=== PATIENT | male | born 1955 | race Caucasian/White ===

== ENCOUNTER 2016-09-26 07:16 | Outpatient (CLI) | payer OTHER | END 2016-09-26 07:17 | disposition home or self-care (01) | DX: N28.89 Other specified disorders of kidney and ureter (principal); R10.9 Unspecified abdominal pain ==

== ENCOUNTER 2016-11-20 07:11 | Outpatient (CLI) | payer OTHER ==
[2016-11-20] MEDS ORDERED: IOPAMIDOL-300 100 ML VIAL IVP ONE (09:03)
== END 2016-11-20 07:12 | disposition home or self-care (01) ==
DX: N28.1 Cyst of kidney, acquired (principal); N28.89 Other specified disorders of kidney and ureter; R10.2 Pelvic and perineal pain; R10.9 Unspecified abdominal pain; R31.9 Hematuria, unspecified
CPT/HCPCS: 36415; 74178; 80048; Q9967

== ENCOUNTER 2017-03-20 14:55 | Outpatient (CLI) | payer OTHER | END 2017-03-20 14:56 | disposition home or self-care (01) | DX: G62.9 Polyneuropathy, unspecified (principal) ==

== ENCOUNTER 2018-03-28 09:58 | Day surgery (SDC) | payer BC ==
[~2018-03-28 09:58] MED LIST: BRIMONIDINE 0.2% OPHTH DROPS 5 ML ONE; BSS/LIDOCAINE/EPINEPHRINE 1 ML SYRINGE ONE; EPINEPHrine 1 MG/ML AMP ONE; TIMOLOL 0.5% OPHTH DROPS ONE; TRIAMCIN/MOXIFLOX OPHTHALMIC 0.6 ML VIAL IO ONE; VANCOMYCIN OPHTHALMI 8MG/0.8ML 8 MG/0.8 ML SYRINGE IO ONE
[2018-03-28] MEDS ORDERED: CYCLOPENTOLATE 1% OPHTH DROPS 2 ML ONE (10:02)
[2018-03-28] MEDS ORDERED: PHENYLEPHRINE 2.5% OPHTH 2 ML DROPS ONE (10:02)
[2018-03-28] MEDS ORDERED: PROPARACAINE 0.5% OPHTH DROPS 15 ML ONE (10:02)
[2018-03-28] MEDS ORDERED: KETOROLAC 0.45% OPHTH DROPS ONE (10:02)
[2018-03-28] MEDS ORDERED: CYCLOPENTOLATE 1% OPHTH DROPS 2 ML LEFTEYE ONE (10:12)
[2018-03-28] MEDS ORDERED: PHENYLEPHRINE 2.5% OPHTH 2 ML DROPS LEFTEYE ONE (10:12)
[2018-03-28] MEDS ORDERED: KETOROLAC 0.45% OPHTH DROPS LEFTEYE ONE (10:12)
[2018-03-28] MEDS ORDERED: PROPARACAINE 0.5% OPHTH DROPS 15 ML LEFTEYE ONE ×2 (10:12→11:05)
[2018-03-28] MEDS ORDERED: LACTATED RINGERS 500 ML IV ONE (10:15)
[2018-03-28] MEDS ORDERED: SCOPOLAMINE PATCH TOP ONE (10:32)
[2018-03-28] MEDS ORDERED: EPINEPHrine 1 MG/ML AMP IR ONE (11:04)
[2018-03-28] MEDS ORDERED: BRIMONIDINE 0.2% OPHTH DROPS 5 ML OPTH ONE (11:04)
[2018-03-28] MEDS ORDERED: CHONDR SULF/HYALURONATE SYRINGE IO ONE (11:05)
[2018-03-28] MEDS ORDERED: TIMOLOL 0.5% OPHTH DROPS OPTH ONE (11:05)
[2018-03-28] MEDS ORDERED: BSS/LIDOCAINE/EPINEPHRINE 1 ML SYRINGE IO ONE ×2 (11:05)
[2018-03-28] MEDS ORDERED: MIDAZOLAM 2 MG/2 ML VIAL IVP ONE (11:14)
[2018-03-28 11:43] VITALS: BP 110/59
--- NOTE | 2018-03-28 13:11 | OPERATIVE REPORT ---
DATE OF SERVICE: 03/28/2018 Physician: Vikram Hanks MD PREOPERATIVE DIAGNOSIS: Visually significant cataract, left eye. This was his first cataract surgery. POSTOPERATIVE DIAGNOSIS: Visually significant cataract, left eye. This was his first cataract surgery. PROCEDURE: Phacoemulsification with posterior chamber intraocular lens implant, left eye. SURGEON: Vikram Hanks MD ANESTHESIA: Monitored anesthesia care. COMPLICATIONS: None. OPERATIVE INDICATIONS: This is a 62-year-old man with progressive vision loss in the left eye due to 2+ nuclear sclerotic, 2+ cortical, and 2+ posterior subcapsular cataract. Best corrected visual acuity was 20/30 with glare to 20/60 in the left eye. INDICATIONS FOR SURGERY: Overall decrease in vision, difficulty seeing words on a computer screen, difficulty reading, difficulty seeing words, closed captions, or game scores on TV; difficulty seeing street signs, difficulty driving in low light or at night, difficulty driving at night because of headlights from other vehicles. He was consented at length concerning the risks and benefits of cataract surgery, after which he expressed the desire to proceed with surgery. OPERATIVE PROCEDURE: The patient was taken into OR #3 and placed under monitored anesthesia care. A surgical timeout was conducted, confirming correct patient, correct procedure, and correct surgical site. He was given topical anesthesia and then prepped and draped in the usual sterile fashion. The eye was entered at the 6 and 3 o'clock positions. Intracameral Shugarcaine was injected into the anterior chamber, followed by Viscoat. A continuous-tear curvilinear capsulorrhexis was performed. The nucleus was hydrodissected and phacoemulsified. Cortex was evacuated using automated infusion and aspiration. Provisc was injected in the capsular bag, and a 19.0 diopter intraocular lens was inserted in the bag. Approximately 0.7 mL mixture of triamcinolone, moxifloxacin and vancomycin was injected subconjunctivally in the superior quadrant for infection and inflammation prophylaxis. I and A was used to evacuate the viscoelastic material. The eye was inflated to physiologic pressure using balanced salt solution found to be watertight. The patient was taken from the operating room in good condition and given postoperative instructions. TD: 03/28/2018 11:24
== END 2018-03-28 09:59 | disposition home or self-care (01) ==
LOC: SDS 09:58
PROVIDERS: ATTEND Ophthalmology
PROC: 08RK3JZ Replacement of Left Lens with Synthetic Substitute, Percutaneous Approach (ICD-10-PCS; principal; 2018-03-28 11:00)
DX: H25.812 Combined forms of age-related cataract, left eye (principal); I10 Essential (primary) hypertension
CPT/HCPCS: 66984; A9270; J3490; V2632

== ENCOUNTER 2018-09-26 07:50 | Day surgery (SDC) | payer BC ==
[~2018-09-26 07:50] MED LIST changes: -EPINEPHrine 1 MG/ML AMP ONE; +KETOROLAC 0.45% OPHTH DROPS ONE; +PROPARACAINE 0.5% OPHTH DROPS 15 ML ONE
[2018-09-26] MEDS ORDERED: LACTATED RINGERS 500 ML IV ONE (07:55)
[2018-09-26] MEDS ORDERED: PHENYLEPHRINE 2.5% OPHTH 2 ML DROPS ONE (07:58)
[2018-09-26] MEDS ORDERED: CYCLOPENTOLATE 1% OPHTH DROPS 2 ML ONE (07:58)
[2018-09-26] MEDS ORDERED: CYCLOPENTOLATE 1% OPHTH DROPS 2 ML RIGHTEYE ONE (08:00)
[2018-09-26] MEDS ORDERED: PROPARACAINE 0.5% OPHTH DROPS 15 ML RIGHTEYE ONE (08:00)
[2018-09-26] MEDS ORDERED: KETOROLAC 0.45% OPHTH DROPS RIGHTEYE ONE (08:00)
[2018-09-26] MEDS ORDERED: PHENYLEPHRINE 2.5% OPHTH 2 ML DROPS RIGHTEYE ONE (08:00)
[2018-09-26] MEDS ORDERED: SCOPOLAMINE PATCH TOP ONE (08:13)
--- NOTE | 2018-09-26 08:18 | ANESTHESIA ---
Pre-Anesthesia VS, & Labs - Diagnosis right senile combined cataract - Procedure right extraction cataract with lens implant Vital Signs: Temp Pulse Resp BP Pulse Ox 36.1 C L 62 16 122/79 100 09/26/18 08:07 09/26/18 08:07 09/26/18 08:07 09/26/18 08:07 09/26/18 08:07 Height 6 ft 2 in Weight (kg) 85.4 kg Body Mass Index 24.3 - NPO >8 hours Home Medications and Allergies Aspirin [Aspir-Low] 81 mg PO DAILY 05/31/16 Lisinopril 10 mg PO DAILY 05/31/16 Cyanocobalamin (Vitamin B-12) [B-12] 500 mg PO DAILY 03/28/18 Gabapentin 900 mg PO TID 03/28/18 Allergies/Adverse Reactions: Allergies Allergy/AdvReac Type Severity Reaction Status Date / Time No Known Drug Allergies Allergy Verified 05/31/16 15:33 Anes History & Medical History - Anesthetic History Anesthesia Complications: reports: Post-Operative Nausea/Vomiting Family history of Anesthesia Complications: Denies Family history of Malignant Hyperthermia: Denies - Medical History Cardiovascular: reports: Hypertension Pulmonary: reports: None Gastrointestinal: reports: GERD Urinary: reports: None Musculoskeletal: reports: None Endocrine/Autoimmune: reports: None Skin: reports: None - Surgical History General: Colonoscopy Eyes Ears Nose Throat (EENT): Cataracts, Other Exam General: Alert Dental: WNL, Other (caps) Mouth Openin Fingerbreadth Neck Mobility: Normal Mallampati classification: II Thyromental Distance: greater than 6 cm Respiratory: Lungs clear, Normal breath sounds, No respiratory distress, No accessory muscle use Cardiovascular: Regular rate, Normal S1, Normal S2, No murmurs Mental/Cognitive Status: Alert/Oriented X3, Normal for patient Cognitive Status: Within normal limits Plan Anesthesia Type: MAC Consent for Procedure(s) Verified and Reviewed: No Code Status: Attempt Resuscitation ASA classification: 2-Mild systemic disease Is this case an emergency?: No
[2018-09-26] MEDS ORDERED: BSS/LIDOCAINE/EPINEPHRINE 1 ML SYRINGE IO ONE (09:09)
[2018-09-26] MEDS ORDERED: CHONDR SULF/HYALURONATE SYRINGE IO ONE (09:09)
[2018-09-26] MEDS ORDERED: TIMOLOL 0.5% OPHTH DROPS OPTH ONE (09:09)
[2018-09-26] MEDS ORDERED: BRIMONIDINE 0.2% OPHTH DROPS 5 ML OPTH ONE (09:09)
[2018-09-26] MEDS ORDERED: EPINEPHrine 1 MG/ML AMP IVP ONE (09:09)
[2018-09-26] MEDS ORDERED: TRIAMCIN/MOXIFLOX OPHTHALMIC 0.6 ML VIAL IO ONE (09:10)
[2018-09-26] MEDS ORDERED: MIDAZOLAM 2 MG/2 ML VIAL IVP ONE (09:10)
[2018-09-26] MEDS ORDERED: VANCOMYCIN OPHTHALMI 8MG/0.8ML 8 MG/0.8 ML SYRINGE IO ONE (09:10)
[2018-09-26 09:41] VITALS: BP 109/61
--- NOTE | 2018-09-26 11:37 | OPERATIVE REPORT ---
DATE OF SERVICE: 09/26/2018 Physician: Vikram Hanks MD PREOPERATIVE DIAGNOSIS: Visually significant cataract, right eye. Cataract surgery was performed on the left eye on 03/28/2018. POSTOPERATIVE DIAGNOSIS: Visually significant cataract, right eye. Cataract surgery was performed o n the left eye on 03/28/2018. PROCEDURE: Phacoemulsification with posterior chamber intraocular lens implant, right eye. SURGEON: Vikram Hanks MD ANESTHESIA: Monitored anesthesia care. COMPLICATIONS: None. OPERATIVE INDICATIONS: This is a 63-year-old man with progressive vision loss in the right eye due t o 2+ nuclear sclerotic, 2+ cortical, and 2+ posterior subcapsular cataract. Best corrected visual ac uity was 20/25, with glare to 20/50 in the right eye. Indications for surgery are overall decrease i n vision, difficulty seeing words on a computer screen and difficulty reading. He was consented at [facility] concerning risks and benefits of cataract surgery, after which he expressed a desire to proceed with surgery. OPERATIVE PROCEDURE: The patient was taken to OR #3 and placed under monitored anesthesia care. A s urgical timeout was conducted confirming correct patient, correct procedure, and correct surgical sit e. He was given topical anesthesia and then prepped and draped in the usual sterile fashion. The ey e was entered at the 12 and 9 o'clock positions. Intracameral Shugarcaine was injected into the ante rior chamber, followed by Viscoat. A continuous-tear curvilinear capsulorrhexis was performed. The nucleus was hydrodissected and phacoemulsified. The cortex was evacuated using an automated infusion and aspiration. Provisc was injected in the capsular bag, and a 19.0 diopter intraocular lens inser kristy in the bag. Approximately 0.8 mL of a mixture of triamcinolone, moxifloxacin and vancomycin was injected subconjunctivally in the superior quadrant for infection and inflammation prophylaxis. I an d A was used to evacuate the viscoelastic materials. The eye was inflated to physiologic pressure us ing balanced salt solution, and found to be watertight. The patient was taken from the operating krista m in good condition, and given postop instructions. TD: 09/26/2018 10:07
== END 2018-09-26 07:51 | disposition home or self-care (01) ==
LOC: SDS 07:50
PROVIDERS: ATTEND Ophthalmology
PROC: 08RJ3JZ Replacement of Right Lens with Synthetic Substitute, Percutaneous Approach (ICD-10-PCS; principal; 2018-09-26 09:00)
DX: H25.811 Combined forms of age-related cataract, right eye (principal); I10 Essential (primary) hypertension; Z79.82 Long term (current) use of aspirin
CPT/HCPCS: 66984; A9270; J3490; V2632

== ENCOUNTER 2019-01-09 08:56 | Outpatient (CLI) | payer BC ==
[2019-01-09 13:56] LABS: BASOPHILS % (AUTO) 0.4 %; EOSINOPHILS # (AUTO) 0.1 10^3/uL (0.0-0.7); EOSINOPHILS % (AUTO) 1.7 %; HGB - HEMOGLOBIN 14.5 g/dL (14.0-18.0); LYMPHOCYTES # (AUTO) 1.8 10^3/uL (1.5-3.5); LYMPHOCYTES % (AUTO) 29.3 %; MEAN CORPUSCULAR HEMOGLOBIN 30.2 pg (27.0-31.0); MEAN CORPUSCULAR HGB CONC 33.8 g/dL (32.0-36.0); MEAN CORPUSCULAR VOLUME 89.3 fL (80.0-94.0); MONOCYTES # (AUTO) 0.5 10^3/uL (0.0-1.0); MONOCYTES % (AUTO) 7.7 %; NEUTROPHILS # (AUTO) 3.6 10^3/uL (1.5-6.6); NEUTROPHILS % (AUTO) 60.9 %; PLT - PLATELET COUNT 144 10^3/uL (130-450); RED BLOOD COUNT 4.81 10^6/uL (4.70-6.10)
[2019-01-09 13:57] LABS: ALBUMIN 4.4 g/dL (3.2-5.5); ALBUMIN/GLOBULIN RATIO 1.6 (1.0-2.2); ALKALINE PHOSPHATASE 66 IU/L (42-121); ALT ALANINE AMINOTRANSFERASE 17 IU/L (10-60); AST ASPARTATE AMINOTRANSFERASE 24 IU/L (10-42); BILIRUBIN,TOTAL 1.1 mg/dL (0.2-1.0); BUN - BLOOD UREA NITROGEN 19 mg/dL (6-20); CALCIUM 9.1 mg/dL (8.5-10.3); CARBON DIOXIDE - CO2 26 mmol/L (21-32); CHLORIDE 105 mmol/L (101-111); CHOL/HDL RATIO 4.2 (<5.0); CHOLESTEROL 179 mg/dL; CREATININE 0.8 mg/dL (0.6-1.2); GFR - MDRD 97 (>89); GLUCOSE 95 mg/dL (70-100); HDL CHOLESTEROL 43 mg/dL; LDL CHOLESTEROL,CALCULATED 108 mg/dL; LDL/HDL RATIO 2.5 (<3.6); SODIUM 140 mmol/L (135-145); TOTAL PROTEIN 7.1 g/dL (6.7-8.2); VLDL CHOLESTEROL 28 mg/dL
[2019-01-09 14:13] LABS: HB2 TOTAL 15.8 g/dL; HEMOGLOBIN A1C 0.52 g/dL; HEMOGLOBIN A1C % 5.2 % (4.6-6.2)
== END 2019-01-09 08:57 | disposition home or self-care (01) ==
LOC: LAB.WCP 08:56
PROVIDERS: ATTEND Family Medicine
DX: I10 Essential (primary) hypertension (principal); R73.01 Impaired fasting glucose; E53.8 Deficiency of other specified B group vitamins; Z12.5 Encounter for screening for malignant neoplasm of prostate
CPT/HCPCS: 36415; 80053; 80061; 83036; 83721; 83921; 84153; 85025

== ENCOUNTER 2019-05-19 08:00 | Outpatient (CLI) | payer BC ==
[2019-05-19 18:38] LABS: BASOPHILS % (AUTO) 0.4 %; EOSINOPHILS # (AUTO) 0.1 10^3/uL (0.0-0.7); EOSINOPHILS % (AUTO) 0.8 %; HGB - HEMOGLOBIN 14.4 g/dL (14.0-18.0); LYMPHOCYTES # (AUTO) 1.7 10^3/uL (1.5-3.5); LYMPHOCYTES % (AUTO) 21.5 %; MEAN CORPUSCULAR HEMOGLOBIN 29.6 pg (27.0-31.0); MEAN CORPUSCULAR VOLUME 89.9 fL (80.0-94.0); MEAN PLATELET VOLUME 10.7 fL (7.4-11.4); MONOCYTES # (AUTO) 0.5 10^3/uL (0.0-1.0); MONOCYTES % (AUTO) 6.3 %; NEUTROPHILS # (AUTO) 5.5 10^3/uL (1.5-6.6); NEUTROPHILS % (AUTO) 70.7 %; PLT - PLATELET COUNT 163 10^3/uL (130-450); RED BLOOD COUNT 4.86 10^6/uL (4.70-6.10); RED CELL DISTRIBUTION WIDTH 12.7 % (12.0-15.0); WHITE BLOOD COUNT 7.8 x10^3/uL (4.8-10.8)
[2019-05-19 18:40] LABS: ALBUMIN 4.7 g/dL (3.2-5.5); ALBUMIN/GLOBULIN RATIO 1.7 (1.0-2.2); BILIRUBIN,TOTAL 0.7 mg/dL (0.2-1.0); CALCIUM 9.4 mg/dL (8.5-10.3); CREATININE 0.9 mg/dL (0.6-1.2); TOTAL PROTEIN 7.5 g/dL (6.7-8.2)
== END 2019-05-19 23:59 | disposition home or self-care (01) ==
LOC: LAB.WCP 08:00
PROVIDERS: ATTEND Family Medicine
DX: K21.9 Gastro-esophageal reflux disease without esophagitis (principal)
CPT/HCPCS: 36415; 80053; 85025

== ENCOUNTER 2019-05-19 13:28 | Outpatient (CLI) | payer BC ==
--- NOTE | 2019-05-20 14:13 | XRAY Report ---
Reason: CHEST PAIN Procedure Date: 05/19/2019 Accession Number: [id number] / [id number] Procedure: WCP - Chest 2 View X-Ray CPT Code: 02200 FULL RESULT: EXAM: CHEST RADIOGRAPHY EXAM DATE: 05/19/2019 01:58 PM. CLINICAL HISTORY: Chest pain and heartburn for 2 weeks. COMPARISON: CHEST 2 VIEW PA/LAT 12/21/2015 2:36 PM. TECHNIQUE: 2 views. FINDINGS: Lungs/Pleura: Linear left midlung scarring. No consolidation. No vascular congestion. No pneumothorax. Right apical pleural thickening without significant change. No pleural effusions. Mediastinum: Heart size and mediastinal contour are within normal limits. Other: None. IMPRESSION: 1. No acute disease in the chest. RADIA
== END 2019-05-19 23:59 | disposition home or self-care (01) ==
LOC: DI.WCP 13:28 → EDSTATUS 13:32 → DI.WCP 23:59
PROVIDERS: ATTEND Family Medicine
DX: R07.9 Chest pain, unspecified (principal)
CPT/HCPCS: 71046

== ENCOUNTER 2020-08-31 08:00 | Outpatient (CLI) | payer MEDICARE, OTHER ==
[2020-08-31 12:53] LABS: BASOPHILS % (AUTO) 0.7 %; EOSINOPHILS # (AUTO) 0.2 10^3/uL (0.0-0.7); EOSINOPHILS % (AUTO) 3.3 %; HGB - HEMOGLOBIN 13.8 g/dL (14.0-18.0); LYMPHOCYTES # (AUTO) 1.3 10^3/uL (1.5-3.5); LYMPHOCYTES % (AUTO) 23.8 %; MEAN CORPUSCULAR HGB CONC 32.5 g/dL (32.0-36.0); MEAN CORPUSCULAR VOLUME 92.2 fL (80.0-94.0); MEAN PLATELET VOLUME 11.1 fL (7.4-11.4); MONOCYTES # (AUTO) 0.4 10^3/uL (0.0-1.0); MONOCYTES % (AUTO) 7.3 %; NEUTROPHILS # (AUTO) 3.6 10^3/uL (1.5-6.6); NEUTROPHILS % (AUTO) 64.7 %; PLT - PLATELET COUNT 153 10^3/uL (130-450); RED CELL DISTRIBUTION WIDTH 12.6 % (12.0-15.0); WHITE BLOOD COUNT 5.5 x10^3/uL (4.8-10.8)
[2020-08-31 13:51] LABS: ALBUMIN 4.4 g/dL (3.2-5.5); ALBUMIN/GLOBULIN RATIO 1.6 (1.0-2.2); ALKALINE PHOSPHATASE 76 IU/L (42-121); ALT ALANINE AMINOTRANSFERASE 19 IU/L (10-60); AST ASPARTATE AMINOTRANSFERASE 19 IU/L (10-42); BILIRUBIN,TOTAL 0.8 mg/dL (0.2-1.0); BUN - BLOOD UREA NITROGEN 16 mg/dL (6-20); CALCIUM 9.6 mg/dL (8.5-10.3); CARBON DIOXIDE - CO2 27 mmol/L (21-32); CHLORIDE 104 mmol/L (101-111); CHOL/HDL RATIO 3.9 (<5.0); CHOLESTEROL 178 mg/dL; GLUCOSE 102 mg/dL (70-100); HDL CHOLESTEROL 46 mg/dL; LDL CHOLESTEROL,CALCULATED 108 mg/dL; LDL/HDL RATIO 2.3 (<3.6); SODIUM 141 mmol/L (135-145); TOTAL PROTEIN 7.2 g/dL (6.7-8.2); VLDL CHOLESTEROL 24 mg/dL
[2020-08-31 14:59] LABS: HEMOGLOBIN A1c% 5.3 % (4.27-6.07)
== END 2020-08-31 23:59 | disposition home or self-care (01) ==
LOC: LAB.WCP 08:00
PROVIDERS: ATTEND Family Medicine
DX: R73.01 Impaired fasting glucose (principal); I10 Essential (primary) hypertension; Z12.5 Encounter for screening for malignant neoplasm of prostate; E53.8 Deficiency of other specified B group vitamins
CPT/HCPCS: 36415; 80053; 80061; 82607; 83036; 85025; G0103; 83721; 84153